=== PATIENT | female | born 1950 | race Caucasian/White ===

== ENCOUNTER 2023-02-25 05:13 | Outpatient (CLI) | payer MEDICARE, BC | END 2023-02-25 23:59 | disposition critical access hospital (66) | LOC: EMS 05:13 | DX: R10.84 Generalized abdominal pain (principal); R10.817 Generalized abdominal tenderness; R19.32 Left upper quadrant abdominal rigidity; R11.2 Nausea with vomiting, unspecified | CPT/HCPCS: A0425; A0427 ==

== ENCOUNTER 2023-02-25 05:49 | Emergency (ER) | payer MEDICARE, BC ==
[2023-02-25] MEDS ORDERED: MORPHINE 2 MG/ML CARPUJECT IVP STA (05:59)
[2023-02-25] MEDS ORDERED: SODIUM CHLORIDE 0.9% 500 ML IV STA (05:59)
[2023-02-25] MEDS ORDERED: MORPHINE 2 MG/ML CARPUJECT ONE (06:19)
--- NOTE | 2023-02-25 06:35 | ED Physician Documentation ---
History of Present Illness - Stated complaint Stated Complaint: ABD PX - Chief complaint Chief Complaint: Abd Pain - History obtained from History obtained from: Patient - Additonal information Additional information: 72yF with pmh sboX3, afib on eliquis, cad s/p stents on plavix, p/w diffuse R sided abdominal pain since yesterday after having a hard bowel movement, subseguently with large amount of watery vomitus. patient unable to pass flatus at present. denies fever, urinary sx. pain is "15/10 when it spikes, 5/10 right now" and intermittent. 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 - Present Medications Home Medications: Ambulatory Orders Medication Instructions Recorded Confirmed Apixaban [Eliquis] 5 mg PO BID 02/25/23 02/25/23 Clopidogrel Bisulfate [Plavix] 75 mg PO DAILY 02/25/23 02/25/23 Docusate Sodium [Dulcolax Stool 200 mg PO BID 02/25/23 02/25/23 Softener] Dulaglutide [Trulicity] 0.75 mg SQ OAW 02/25/23 02/25/23 Gabapentin [Neurontin] 100 mg PO BID 02/25/23 02/25/23 Levothyroxine [Synthroid] 75 mcg PO QDAC 02/25/23 02/25/23 Metformin HCl [Metformin ER 1,000 mg PO DAILY 02/25/23 02/25/23 Osmotic] Metoprolol Tartrate [Lopressor] 100 mg PO HS 02/25/23 02/25/23 Oxycodone HCl/Acetaminophen 02/25/23 02/25/23 [Percocet 10-325 mg Tablet] Potassium Chloride 20 meq PO BID 02/25/23 02/25/23 Pregabalin [Lyrica] 75 mg PO BID 02/25/23 02/25/23 Simvastatin [Zocor] 40 mg PO HS 02/25/23 02/25/23 Torsemide 50 mg PO DAILY 02/25/23 02/25/23 allopurinoL [Zyloprim] 100 mg PO BID 02/25/23 02/25/23 - Allergies Allergies/Adverse Reactions: Allergies Allergy/AdvReac Type Severity Reaction Status Date / Time No Known Drug Allergies Allergy Verified 02/25/23 05:58 - Social History Does the pt smoke?: No Smoking Status: Never smoker Does the pt drink ETOH?: Yes Does the pt have substance abuse?: No - Immunizations Immunizations are current?: Yes - POLST Patient has POLST: No PD ED PE NORMAL - Vitals Vital signs reviewed: Yes - General General: Alert and oriented X 3, No acute distress, Other (large body habitus) - HEENT HEENT: Atraumatic, PERRL, EOMI - Neck Neck: Supple, no meningeal sign - Cardiac Cardiac: RRR - Respiratory Respiratory: No respiratory distress, Clear bilaterally - Abdomen Abdomen: Other (diffusely ttp) - Derm Derm: Normal color, Warm and dry - Extremities Extremities: No deformity - Neuro Neuro: No motor deficit, No sensory deficit - Psych Psych: Normal mood, Normal affect Results - Vitals Vitals: Vital Signs - 24 hr 02/25/23 05:54 Temperature 36.6 C Heart Rate 82 Respiratory 17 Rate Blood Pressure 104/85 H O2 Saturation 97 Oxygen O2 Source Room air PD Medical Decision Making - ED course ED course: 72yF with pmh sbo p/w inability to pass flatus, diffuse abdominal pain, nausea and vomiting. cbc, abdominal panel, u/a ordered. 500cc IVF and 4mg IV morphine provided. patient already had 4mg zofran en route with ems. plan to endorse to incoming daytime ED MD at 7am shift change. Departure - Departure Clinical Impression: Abdominal pain, Vomiting
[2023-02-25 06:49] LABS: BASOPHILS # (AUTO) 0.1 10^3/uL (0.0-0.1); BASOPHILS % (AUTO) 0.4 %; EOSINOPHILS # (AUTO) 0.1 10^3/uL (0.0-0.7); EOSINOPHILS % (AUTO) 0.4 %; HCT - HEMATOCRIT 43.1 % (37.0-47.0); HGB - HEMOGLOBIN 13.4 g/dL (12.0-16.0); LYMPHOCYTES # (AUTO) 2.1 10^3/uL (1.5-3.5); LYMPHOCYTES % (AUTO) 11.6 %; MEAN CORPUSCULAR HEMOGLOBIN 25.6 pg (27.0-31.0); MEAN CORPUSCULAR HGB CONC 31.1 g/dL (32.0-36.0); MEAN CORPUSCULAR VOLUME 82.4 fL (81.0-99.0); MEAN PLATELET VOLUME 9.4 fL (7.9-10.8); MONOCYTES # (AUTO) 1.1 10^3/uL (0.0-1.0); MONOCYTES % (AUTO) 6.3 %; NEUTROPHILS # (AUTO) 14.6 10^3/uL (1.5-6.6); NEUTROPHILS % (AUTO) 80.9 %; PLT - PLATELET COUNT 348 10^3/uL (130-450); RED BLOOD COUNT 5.23 10^6/uL (4.20-5.40); RED CELL DISTRIBUTION WIDTH 16.1 % (12.0-15.0)
[2023-02-25] MEDS ORDERED: DIATR MEGLU/DIATRIZOATE SODIUM 120 ML BOTTLE ONE (06:58)
[2023-02-25 07:02] LABS: ALBUMIN 3.6 g/dL (3.2-5.5); ALBUMIN/GLOBULIN RATIO 0.9 (1.0-2.2); BILIRUBIN,TOTAL 0.9 mg/dL (0.2-1.0); CALCIUM 9.6 mg/dL (8.5-10.3); CREATININE 0.9 mg/dL (0.4-1.0); POTASSIUM 3.2 mmol/L (3.5-5.0); TOTAL PROTEIN 7.5 g/dL (6.7-8.2)
[2023-02-25] MEDS ORDERED: HYDROmorphone 0.5 MG/0.5 ML SYRINGE IVP STA (07:30)
[2023-02-25] MEDS ORDERED: iohexoL-300 100 ML VIAL ONE (08:06)
[2023-02-25] MEDS ORDERED: iohexoL-300 100 ML VIAL IVP ONE (08:30)
--- NOTE | 2023-02-25 08:51 | CT Report ---
PROCEDURE: ABDOMEN/PELVIS W INDICATIONS: abd pain, hx sbo X 3 CONTRAST: 100ml omni 300 TECHNIQUE: After the administration of contrast, 5 mm thick sections acquired from the diaphragms to the symphy sis. 5 mm thick coronal and sagittal reformats were acquired. For radiation dose reduction, the fol lowing was used: automated exposure control, adjustment of mA and/or kV according to patient size. COMPARISON: none FINDINGS: Image quality: Lower pelvis is obscured secondary to hip arthroplasty artifact. Lung bases and heart: Cardiomegaly. Liver: Hepatic steatosis. Gallbladder and biliary tree: Luminal stones without wall thickening. Spleen: No splenomegaly. Pancreas: No pancreatic ductal dilation. Adrenals: No adrenal nodule. Kidneys and ureters: No hydronephrosis. Assymetric left renal atrophy. Non obstructing right renal c alcifications. No renal cystic lesion which requires follow up. No solid mass. Bowel and peritoneum: Mildly prominent scattered fluid filled small bowel loops. No pathologic free f luid. Lymph nodes: No central or retroperitoneal adenopathy. Vessels: No infrarenal aortic aneurysm. PELVIS Reproductive organs: Unremarkable. Bladder: No abnormal wall thickening, accounting for underdistension. Pelvic lymph nodes: No pelvic adenopathy by size criteria. Bones: No aggressive osseous abnormality. Other: No significant ventral or inguinal hernia. IMPRESSION: Scattered mildly prominent fluid filled small bowel loops, suggestive of ilieus vs developing partial small bowel obstruction. Cholelithasis without cholecystitis. Reviewed by: Antonieta Motley MD on 02/25/2023 8:50 AM PDT Approved by: Antonieta Motley MD on 02/25/2023 8:50 AM PDT Station ID: [id number]
--- NOTE | 2023-02-25 09:05 | ED Physician Documentation ---
ED Addendum - Addendum Addendum: Patient received in signout from Dr. Garcia pending CT scan. Patient has a history of small bowel obstructions with prior surgeries for adhesions and appendectomy. She is visiting from out of town. She is anticoagulated on Eliquis. Her last dose was yesterday. She continues to report having pain. Nausea has improved somewhat. She does report having numerous episodes of emesis this morning. 902 - CT reviewed with findings read by radiologist as ileus versus partial small bowel obstruction. Patient continues to report having significant pain. She is tender on exam. Plan to consult with general surgery, Dr. Ashby. He is currently in a procedure and will call back when he is done 02/25/23 10:38 - D/W Dr. Ashby. He is doing procedures today but will consult on her at the end of the day. 02/25/23 11:45 - Seen by Dr. Ashby. Given her medical comorbidities he r ecommends that we transfer her to a larger facility as she is not a surgical candidate for [facility]. He will continue to follow her as long as she is in the emergency department but would not plan to operate her on her here as she would be too high risk for this hospital. 02/25/23 12:30 D/w Dr. Kelley (General Surgery at ). Agrees to consult. Discussed with Dr. Chavez, hospitalist at [facility] who agrees to admit the patient Accepts in transfer. 02/25/23 14:22 Reviewed patient's urine analysis which is suggestive of a UTI. Patient states that she did not have any symptoms yesterday but just now when she went to the restroom she had burning and discomfort. She reports having frequent UTIs and is supposed to see a urologist when she returns home to [place]. Given that she is symptomatic we will treat with antibiotics. Departure - Departure Disposition: 02 Transfer Acute Care Hosp Clinical Impression: Abdominal pain, Vomiting, Partial small bowel obstruction, UTI (urinary tract infection), Leukocytosis Discharge Date/Time: 02/25/23 15:19 Results - Vitals Vitals: Vital Signs - 24 hr 02/25/23 02/25/23 02/25/23 05:54 06:35 07:00 Temperature 36.6 C Heart Rate 82 83 61 Respiratory 17 17 22 Rate Blood Pressure 104/85 H 119/62 116/90 H O2 Saturation 97 94 98 If not protocol : Oxygen Flow, liters/minute 02/25/23 02/25/23 09:00 11:00 Temperature Heart Rate 74 74 Respiratory 17 19 Rate Blood Pressure O2 Saturation 98 96 If not protocol 2 2 : Oxygen Flow, liters/minute Oxygen O2 Source Nasal cannula - EKG (time done) 1247 EKG releavant findings:: EKG personally interpreted by author of this note. Relevant findings are: Rate 67, atrial fibrillation, no STEMI Rate: Rate (enter#) (67) Rhythm: Atrial fibrillation Ischemia: No: ST elevation c/w ischemia Compare to prior EKG: Old EKG unavailable - Labs Labs: Laboratory Tests 02/25/23 02/25/23 06:42 06:42 WBC 18.0 H RBC 5.23 Hgb 13.4 Hct 43.1 MCV 82.4 MCH 25.6 L MCHC 31.1 L RDW 16.1 H Plt Count 348 MPV 9.4 Neut # (Auto) 14.6 H Lymph # (Auto) 2.1 [place] # (Auto) 1.1 H Eos # (Auto) 0.1 Baso # (Auto) 0.1 Absolute Nucleated RBC 0.00 Nucleated RBC % 0.0 Sodium 141 Potassium 3.2 L Chloride 97 L Carbon Dioxide 31 Anion Gap 13.0 BUN 20 Creatinine 0.9 Estimated GFR (MDRD) 62 L Glucose 132 H Calcium 9.6 Total Bilirubin 0.9 AST 21 ALT 22 Alkaline Phosphatase 68 Total Protein 7.5 Albumin 3.6 Globulin 3.9 Albumin/Globulin Ratio 0.9 L Lipase 28
[2023-02-25] MEDS ORDERED: SODIUM CHLORIDE 0.9% 1,000 ML IV STA (09:08)
[2023-02-25] MEDS: POTASSIUM CHLOR 10 MEQ/100 ML 10 MEQ/100 ML BAG IV SCH ×2 (09:31→12:44)
[2023-02-25] MEDS ORDERED: HYDROmorphone 0.5 MG/0.5 ML SYRINGE IVP PRN ×2 (11:47→11:59)
[2023-02-25] MEDS ORDERED: SODIUM CHLORIDE FLUSH 0.9% 10 ML SYRINGE IVP PRN (11:47)
[2023-02-25] MEDS ORDERED: PROCHLORPERAZINE 10 MG/2 ML VIAL IVP PRN (11:47)
[2023-02-25] MEDS ORDERED: ONDANSETRON ODT 4 MG TABLET TL PRN (11:47)
[2023-02-25] MEDS ORDERED: ONDANSETRON 4 MG/2 ML VIAL IVP PRN (11:47)
[2023-02-25] MEDS ORDERED: SODIUM CHLORIDE 0.9% 1,000 ML IV SCH (12:00)
[2023-02-25] MEDS ORDERED: INSULIN REGULAR HUMAN 300 UNIT/3 ML VIAL SUBQ SCH (12:00)
--- NOTE | 2023-02-25 12:14 | CONSULTATION NOTE ---
Referring Provider Consult Date: 02/25/23 Chief Complaint - Chief Complaint Chief Complaint: abdominal pain and n/v x 1 day History of Present Illness - History Obtained From Records Reviewed: yes History obtained from: pt Exam Limitations: none - History of Present Illness HPI Comment/Other: [facility] [place]. she has family in [place]. she developed abdominal pain and n/v yesterday. seen and evaluated in ED. No ngt at this time. she denies nausea at this time. still having moderate pain left lower abdomen. she has cardiac history and history stents. she is on plavix and eliquis. she has impaired mobility and uses oxygen history appendectomy and hysterectomy. history 3 laparotomies for bowel obstruction. last surgery 12 to 13 years ago. 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 - POLST Patient has POLST: No Meds/Allgy - Home Medications Home Medications: Ambulatory Orders Medication Instructions Recorded Confirmed Apixaban [Eliquis] 5 mg PO BID 02/25/23 02/25/23 Clopidogrel Bisulfate [Plavix] 75 mg PO DAILY 02/25/23 02/25/23 Docusate Sodium [Dulcolax Stool 200 mg PO BID 02/25/23 02/25/23 Softener] Dulaglutide [Trulicity] 0.75 mg SQ OAW 02/25/23 02/25/23 Gabapentin [Neurontin] 100 mg PO BID 02/25/23 02/25/23 Levothyroxine [Synthroid] 75 mcg PO QDAC 02/25/23 02/25/23 Metformin HCl [Metformin ER 1,000 mg PO DAILY 02/25/23 02/25/23 Osmotic] Metoprolol Tartrate [Lopressor] 100 mg PO HS 02/25/23 02/25/23 Oxycodone HCl/Acetaminophen 02/25/23 02/25/23 [Percocet 10-325 mg Tablet] Potassium Chloride 20 meq PO BID 02/25/23 02/25/23 Pregabalin [Lyrica] 75 mg PO BID 02/25/23 02/25/23 Simvastatin [Zocor] 40 mg PO HS 02/25/23 02/25/23 Torsemide 50 mg PO DAILY 02/25/23 02/25/23 allopurinoL [Zyloprim] 100 mg PO BID 02/25/23 02/25/23 - Allergies Allergies/Adverse Reactions: Allergies Allergy/AdvReac Type Severity Reaction Status Date / Time No Known Drug Allergies Allergy Verified 02/25/23 05:58 Review of Systems - Other Findings Other Findings: 10 pt ros as above otherwise unremarkable Exam - Vital Signs Vital Signs: Vital Signs x48h Temp Pulse Resp BP Pulse Ox 02/25/23 07:00 61 22 116/90 H 98 02/25/23 06:35 83 17 119/62 94 02/25/23 05:54 36.6 C 82 17 104/85 H 97 - Physical Exam General Appearance: positive: No acute distress, Alert Eyes Bilateral: positive: PERRL, EOMI, No scleral icterus ENT: positive: No signs of dehydration Neck: positive: No JVD, Trachea midline Respiratory: positive: No respiratory distress Cardiovascular: positive: Irregularly irregular Abdomen: positive: Other (tight abdomen with central obesity. left lower quadrant tenderness present. no peritoneal signs or guarding) Extremities: positive: No pedal edema Neurologic/Psychiatric: positive: Oriented x3 Conclusion/Plan - Problem List (1) Partial small bowel obstruction Conclusion/Plan: she has significant comorbidities with cardiac history, cardiac stents, home O2 use, impaired mobilty, central obesity, 4 prior laparotomies including 3 for bowel obstruction. she has family in [place]. she is visiting [facility]. we discussed [facility] is a very small [facility] and ideally she should be cared for at a hospital that can provide a higher level of care - Lab Results Fish Bones: 02/25/23 06:42 02/25/23 06:42
[2023-02-25 12:48] LABS: BILIRUBIN,URINE NEGATIVE (NEGATIVE); GLUCOSE, URINE (UA) NEGATIVE (NEGATIVE); KETONES,URINE (UA) NEGATIVE (NEGATIVE); LEUKOCYTE ESTERASE, URINE MODERATE (NEGATIVE); NITRITE,URINE NEGATIVE (NEGATIVE); OCCULT BLOOD,URINE NEGATIVE (NEGATIVE); PH,URINE >=9.0 PH (5.0-7.5); PROTEIN,URINE 100 mg/dL (NEGATIVE); UROBILINOGEN,URINE 0.2 (NORMAL) E.U./dL (NORMAL)
[2023-02-25 12:59] LABS: CLARITY,URINE HAZY (CLEAR)
[2023-02-25 13:00] LABS: BACTERIA,URINE Many /HPF (None Seen); RBC,URINE 11 /HPF (0-5); SQUAMOUS EPITHELIAL CELL,UR FEW Squamous (<= Few)
[2023-02-25 13:01] LABS: CRYSTALS,URINE 3-5 Triple Phosphate /LPF
--- NOTE | 2023-02-25 13:53 | XRAY Report ---
PROCEDURE: Chest for Line Placement INDICATIONS: NG placement TECHNIQUE: One view of the chest was acquired. COMPARISON: None. FINDINGS: Surgical changes and devices: NGT tip in the area of GE junction. Lungs and pleura: Mild perihilar infiltrates suggesting mild CHF. No pleural effusions or pneumothor ax. Lungs are clear. Mediastinum: Mediastinal contours appear normal. Heart size is mildly increased. Bones and chest wall: No suspicious bony lesions. Overlying soft tissues appear unremarkable. IMPRESSION: NGT tip in the area of GE junction. Consider advancing further into the stomach. Reviewed by: Vito Weiner MD on 02/25/2023 1:52 PM PDT Approved by: Vito Weiner MD on 02/25/2023 1:52 PM PDT Station ID: [id number]
[2023-02-25] MEDS ORDERED: cefTRIAXone 1 GM in SODIUM CHLORIDE 0.9% MINIBAG 100 ML IV STA (14:25)
[2023-02-25 15:20] VITALS: BP 130/74
[2023-02-25] MEDS ORDERED: SODIUM CHLORIDE FLUSH 0.9% 10 ML SYRINGE IVP SCH (17:00)
[2023-02-25] MEDS ORDERED: METOPROLOL TARTRATE 50 MG TABLET PO SCH (21:00)
[2023-02-26] MEDS ORDERED: ENOXAPARIN 40 MG/0.4 ML SYRINGE SUBQ SCH (09:00)
== END 2023-02-25 15:19 | disposition short-term general hospital (02) ==
LOC: ED 05:49
DX: K56.600 Partial intestinal obstruction, unspecified as to cause (principal); N39.0 Urinary tract infection, site not specified; D72.829 Elevated white blood cell count, unspecified; R11.10 Vomiting, unspecified; I10 Essential (primary) hypertension; I48.91 Unspecified atrial fibrillation; Z79.01 Long term (current) use of anticoagulants; Z95.5 Presence of coronary angioplasty implant and graft
CPT/HCPCS: 36415; 43753; 74177; 80053; 81001; 83690; 85025; 87077; 87086; 87181; 93005; 96365; 96366; 96368; 96375; 96376; 99285; J1170; Q9963; Q9967; 81003

== ENCOUNTER 2023-02-25 15:22 | Outpatient (CLI) | payer MEDICARE, BC | END 2023-02-25 23:59 | disposition short-term general hospital (02) | LOC: EMS 15:22 | PROVIDERS: ATTEND Emergency Medicine | DX: K56.609 Unspecified intestinal obstruction, unspecified as to partial versus complete obstruction (principal); I48.91 Unspecified atrial fibrillation | CPT/HCPCS: A0425; A0426 ==